=== PATIENT | male | born 1965 | race Caucasian/White ===

== ENCOUNTER 2019-04-20 05:55 | Emergency (ER) | payer SELFPAY ==
[~2019-04-20] VITALS: Ht 180.3 cm; Wt 99.8 kg
[2019-04-20 06:02] VITALS: Ht 180.3 cm; Wt 99.8 kg
[2019-04-20 08:48] VITALS: BP 149/90
== END 2019-04-20 08:47 | disposition home or self-care (01) ==
LOC: ED 05:55
DX: S16.1XXA Strain of muscle, fascia and tendon at neck level, initial encounter (principal); S29.012A Strain of muscle and tendon of back wall of thorax, initial encounter; I10 Essential (primary) hypertension; E11.9 Type 2 diabetes mellitus without complications; V43.52XA Car driver injured in collision with other type car in traffic accident, initial encounter; Y93.I9 Activity, other involving external motion; Y92.413 State road as the place of occurrence of the external cause; Y99.8 Other external cause status
CPT/HCPCS: 72072